=== PATIENT | male | born 1950 | race Caucasian/White ===

== ENCOUNTER 2019-10-11 02:49 | Emergency (ER) | payer MEDICARE ==
[~2019-10-11] VITALS: Ht 177.8 cm; Wt 72.7 kg
[~2019-10-11 02:49] MED LIST: GLIP2.5T3 PO
[2019-10-11 02:50] VITALS: BP 145/67
[2019-10-11] MEDS ORDERED: TETanus/Pertussis (Acell)/Diphther VAC/PF (Tdap-Adult) 0.5ml syringe IMVAC ONE (03:05)
[2019-10-11] MEDS ORDERED: LIDOcaine 1% W/epiNEPHrine 1:200,000 10ml vial IJ ONE (03:05)
[2019-10-11] MEDS ORDERED: amox tr/potassium clavulanate 875/125mg TAB PO ONE (04:20)
[2019-10-11] MEDS ORDERED: AMOX-422 PO (04:25)
== END 2019-10-11 04:53 | disposition home or self-care (01) ==
LOC: ER 02:49
DX: L60.0 Ingrowing nail (principal); L03.032 Cellulitis of left toe; E11.42 Type 2 diabetes mellitus with diabetic polyneuropathy; I10 Essential (primary) hypertension; M19.90 Unspecified osteoarthritis, unspecified site; G89.29 Other chronic pain; Z79.899 Other long term (current) drug therapy; W54.0XXA Bitten by dog, initial encounter; Y93.89 Activity, other specified; Y92.89 Other specified places as the place of occurrence of the external cause; Y99.8 Other external cause status
CPT/HCPCS: 11730; 82948; 87070; 87077; 87186; 90471; 90715; 99283

== ENCOUNTER 2024-07-18 23:26 | Emergency (ER) | payer MEDICARE ==
[~2024-07-18] VITALS: Ht 175.3 cm; Wt 72.1 kg
[2024-07-18 23:27] VITALS: BP 160/78; PULSE 82; RESP 16; TEMP 98; O2SAT 98
== END 2024-07-18 23:57 | disposition left against medical advice (07) ==
LOC: ER 23:27
DX: G89.29 Other chronic pain (principal); M54.2 Cervicalgia; Z53.21 Procedure and treatment not carried out due to patient leaving prior to being seen by health care provider